=== PATIENT | female | born 2000 | race Caucasian/White ===

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

== ENCOUNTER 2022-06-07 11:47 | Emergency (ER) | payer OTHER ==
[~2022-06-07] VITALS: Ht 165.1 cm; Wt 68.0 kg
[~2022-06-07 11:47] MED LIST: PENI500T20 PO; PRED20TA5 PO
[2022-06-07 11:53] VITALS: BP 126/81
--- NOTE | 2022-06-07 14:31 | NUR ---
PT AMBULATED TO BED 2
--- NOTE | 2022-06-07 14:36 | NUR ---
DR SIFUENTES AT BEDSIDE FOR EVAL
[2022-06-07] MEDS ORDERED: DICYCLOMINE HCL LIQUID 20 MG, ALUMINUM HYD/MAG/SIMETHICONE 30 ML, LIDOCAINE VISCOUS 2% ... PO ONE ×3 (14:40)
[2022-06-07] MEDS ORDERED: ACETAMINOPHEN EXTRA STRENGTH 500 MG TAB PO ONE (14:40)
[2022-06-07] MEDS ORDERED: ONDANSETRON 4 MG ODT PO ONE (14:40)
[2022-06-07] MEDS ORDERED: DICYCLOMINE HCL LIQUID 10 MG/5 ML UDC ONE (14:50)
[2022-06-07] MEDS ORDERED: ALUMINUM HYD/MAG/SIMETHICONE 30 ML UDC ONE (14:50)
--- NOTE | 2022-06-07 14:50 | NUR ---
21 Y/O FEMALE BIB SELF C/O ABD PAIN RADIATING TO THE LOWER BACK X1DAY/ STATES THAT THE PAIN IS SHARP, DENIES ANY MEDICATION FOR PAIN, DENIES ANY VOMITING/DIARRHEA/FEVER pmh: denies nka med: denies
[2022-06-07] MEDS ORDERED: ONDA-188 PO (15:13)
[2022-06-07] MEDS ORDERED: FAMO-90 PO (15:13)
[2022-06-07] MEDS ORDERED: MAG355OR2 PO (15:13)
[2022-06-07 15:16] LABS: BASOPHILS % (AUTO) 0.3 % (0.0-2.0); EOSINOPHILS % (AUTO) 0.1 % (0.0-4.0); HEMATOCRIT 39.2 % (36-48); HEMOGLOBIN 12.9 g/dL (12.0-16.0); LYMPHOCYTES # (AUTO) 0.5 K/uL (2.5-16.5); LYMPHOCYTES % (AUTO) 6.9 % (20.5-51.1); MEAN CORPUSCULAR HEMOGLOBIN 28 pg (27-31); MEAN CORPUSCULAR HGB CONC 33 g/dL (33-37); MEAN CORPUSCULAR VOLUME 85.4 fL (80-94); MONOCYTES # (AUTO) 0.6 K/uL (0.8-1.0); MONOCYTES % (AUTO) 8.4 % (1.7-9.3); NEUTROPHILS # (AUTO) 5.9 K/uL (1.8-7.7); NEUTROPHILS % (AUTO) 84.3 % (42.2-75.2); PLATELET COUNT (AUTO) 235 K/uL (140-450); RED BLOOD CELL COUNT(AUTO) 4.58 MIL/uL (4.20-5.40); RED CELL DISTRIBUTION WIDTH 13.3 % (11.6-13.7); WHITE BLOOD COUNT (AUTO) 6.9 K/uL (4.5-11.0)
[2022-06-07 15:56] LABS: ALBUMIN 3.9 g/dL (3.4-5.0); ANION GAP 11.8 (8-16); CARBON DIOXIDE 26.2 mmol/L (21-32); CREATININE 0.7 mg/dL (0.6-1.3); TOTAL BILIRUBIN 0.3 mg/dL (0.0-1.0)
[2022-06-07] MEDS ORDERED: KETOROLAC 30 MG/ML VIAL IM ONE (16:20)
--- NOTE | 2022-06-07 17:17 | NUR ---
US AT BEDSIDE
[2022-06-07 18:20] VITALS: BP 121/74
--- NOTE | 2022-06-07 18:20 | NUR ---
Patient discharged with v/s stable. Written and verbal after care instructions given and explained. Patient alert, oriented and verbalized understanding of instructions. Ambulatory with steady gait. All questions addressed prior to discharge. ID band removed. Patient advised to follow up with PMD. Rx of PEPCID, MAALOX, ZOFRAN ODT given. Patient educated on indication of medication including possible reaction and side effects. Opportunity to ask questions provided and answered.
== END 2022-06-07 18:20 | disposition home or self-care (01) ==
LOC: MED 11:47
DX: K29.70 Gastritis, unspecified, without bleeding (principal); Z79.899 Other long term (current) drug therapy
CPT/HCPCS: 36415; 76705; 80053; 81002; 81025; 83690; 85025; 96372; 99284; J1885; Q0092; Q0162